=== PATIENT | male | born 1985 | race Caucasian/White ===

== ENCOUNTER 2017-10-01 07:47 | Emergency (ER) | payer OTHER ==
[~2017-10-01] VITALS: Ht 180.3 cm; Wt 72.7 kg
[~2017-10-01 07:47] MED LIST: CEPHALEXIN500 M1 PO; NORCO 325 MG-51 TAB PO
[2017-10-01 07:52] VITALS: TEMP 96.8
[2017-10-01 08:18] LABS: BASO % 0.8 % (0.0-2.0); EOS # 0.3 (0.0-0.7); EOS % 4.8 % (0-4.0); GRAN # 3.3 (1.4-6.5); GRAN % 61.7 % (42.2-75.2); HEMATOCRIT 39.6 % (42.0-52.0); LYMPH # 1.2 (1.2-3.4); LYMPH % 22.4 % (20.0-51.0); MEAN CELL VOLUME 87 fl (80.0-100.0); MEAN CORPUSCULAR HEMOGLOBIN 28 pg (27.0-31.0); MEAN CORPUSCULAR HGB CONC 33 g/dl (33.0-37.0); MONO # 0.5 (0.1-0.6); MONO % 9.9 % (1.7-9.3); PLATELET COUNT 186 K/mm3 (130-400); RED BLOOD COUNT 4.57 M/mm3 (4.20-5.60); REDCELL DISTRIBUTION WIDTH-CV 12.6 % (11.5-14.5)
[2017-10-01 08:23] LABS: ALBUMIN 3.8 gm/dL (3.5-5.0); BILIRUBIN,TOTAL 0.6 mg/dL (0.0-1.0); CALCIUM 8.5 mg/dL (8.4-10.2); CREATININE, serum 1.05 mg/dL (0.66-1.25); MAGNESIUM 1.7 mg/dL (1.6-2.3); POTASSIUM 4.2 mmol/L (3.4-5.0); TOTAL PROTEIN 6.5 gm/dL (6.4-8.2)
[2017-10-01 08:54] LABS: TSH w REFLEX 0.939 uIU/mL (0.465-4.680)
[2017-10-01 09:50] LABS: COLLECTION METHOD CLEAN CATCH
[2017-10-01 09:58] LABS: MUCOUS Present /lpf; PH 6 (5-8); SQUAMOUS EPITHELIAL 0-2 /hpf; URINE APPEARANCE Clear; URINE BACTERIA None Seen /hpf; URINE BILIRUBIN Negative (NEGATIVE); URINE BLOOD Negative (NEGATIVE); URINE COLOR Yellow; URINE GLUCOSE Negative (NEGATIVE); URINE KETONE Negative (NEGATIVE); URINE LEUKOCYTE ESTERASE Negative (NEGATIVE); URINE NITRATE Negative (NEGATIVE); URINE PROTEIN(semi-quant) Negative (NEGATIVE); URINE RBC 0-2 /hpf; URINE UROBILINOGEN Negative (NEGATIVE)
[2017-10-01 10:19] VITALS: BP 100/74; PULSE 64
== END 2017-10-01 10:20 | disposition home or self-care (01) ==
LOC: COL.ER 07:47
PROVIDERS: Physician Assistant
DX: R55 Syncope and collapse (principal); E86.0 Dehydration; F12.90 Cannabis use, unspecified, uncomplicated
CPT/HCPCS: J7030

== ENCOUNTER 2018-12-07 04:49 | Observation (INO) | payer OTHER ==
[2018-12-07] VITALS (7 sets, daily range): BP systolic 91–118; BP diastolic 52–66; PULSE 50–55; TEMP 97.9–98.5
[~2018-12-07] VITALS: Ht 180.3 cm; Wt 70.5 kg
[2018-12-07 05:28] LABS: BASO % 0.3 % (0.0-2.0); EOS % 0.1 % (0-4.0); GRAN # 13.7 (1.4-6.5); GRAN % 88.7 % (42.2-75.2); HEMATOCRIT 45.7 % (42.0-52.0); HEMOGLOBIN 15.5 g/dl (13.5-18.0); LYMPH # 0.7 (1.2-3.4); LYMPH % 4.8 % (20.0-51.0); MEAN CELL VOLUME 84 fl (80.0-100.0); MEAN CORPUSCULAR HEMOGLOBIN 29 pg (27.0-31.0); MEAN CORPUSCULAR HGB CONC 34 g/dl (33.0-37.0); MEAN PLATELET VOLUME 9.6 fl (7.4-10.4); MONO # 0.9 (0.1-0.6); MONO % 5.6 % (1.7-9.3); PLATELET COUNT 264 K/mm3 (130-400); RED BLOOD COUNT 5.44 M/mm3 (4.20-5.60); REDCELL DISTRIBUTION WIDTH-CV 12.5 % (11.5-14.5)
[2018-12-07 05:39] LABS: ALANINE AMINOTRANSFERASE 12 U/L (21-72); ALBUMIN 4.8 gm/dL (3.5-5.0); ALKALINE PHOSPHATASE 84 U/L (50-136); ANION GAP 13 mmol/L (7-16); AST,SGOT 29 U/L (15-37); BLOOD UREA NITROGEN 17 mg/dL (9-20); C-REACTIVE PROTEIN < 0.5 mg/dL (0.0-0.9); CALCIUM 10.1 mg/dL (8.4-10.2); CARBON DIOXIDE 27 mmol/L (22-30); CHLORIDE 98 mmol/L (98-107); CREATININE, serum 1.05 (0.66-1.25); GLUCOSE 127 mg/dL (74-106); LIPASE 32 U/L (23-300); SODIUM 138 mmol/L (137-145); TOTAL PROTEIN 8.6 gm/dL (6.4-8.2)
[2018-12-07 11:02] LABS: COLLECTION METHOD CLEAN CATCH
[2018-12-07 11:21] LABS: MUCOUS Present /lpf; PH 9 (5-8); SQUAMOUS EPITHELIAL None Seen /hpf; URINE APPEARANCE Hazy; URINE BACTERIA Rare /hpf; URINE BILIRUBIN Negative (NEGATIVE); URINE BLOOD Negative (NEGATIVE); URINE COLOR Yellow; URINE GLUCOSE Negative (NEGATIVE); URINE KETONE Negative (NEGATIVE); URINE LEUKOCYTE ESTERASE Negative (NEGATIVE); URINE NITRATE Negative (NEGATIVE); URINE PROTEIN(semi-quant) Negative (NEGATIVE); URINE UROBILINOGEN Negative (NEGATIVE)
--- NOTE | 2018-12-07 12:40 | NUR ---
Patient up to room 322 from ER. Alert and oriented x 3. Patient oriented to room. Denies further needs at this time.
--- NOTE | 2018-12-07 18:25 | NUR ---
Patient has done well this afternoon, requested nausea medicaition after arrival from OR, states better with zofran administration, later requested tylenol for mild abdominal pain, given per order. Currently ordering supper. Encouraged patient to ambulate. Lap sites x 3 with swiftset. Denies further needs at this time. Will report off to night worker.
--- NOTE | 2018-12-07 20:20 | NUR ---
Pt. has met criteria to discharge. Pt. unable to fill script tonight. Dr. Damian notified for home script to send with pt. New order received.
--- NOTE | 2018-12-07 20:40 | NUR ---
Pt. give discharge paperwork. Eduction, meds and follow up reviewed with the pt. Pt. voices understanding. Pt. given home pain meds and script to fill tomorrow. Pt. given health summary. INT discontinued from rt. forearm. Pt. dressed and escorted out by this nurse.
--- NOTE | 2018-12-07 22:50 | NUR ---
Pt. sitting up in bed at this time. Pt. is A&OX3, assessment complete INT to rt. hand patent. 3 abd. lap sites noted, cdi. Pt. denies needs at this time.
== END 2018-12-07 20:45 | disposition home or self-care (01) ==
LOC: COL.ER 04:49 → SURG 07:45
PROVIDERS: Emergency Medicine; ADMIT Surgery
DX: K35.80 Unspecified acute appendicitis (principal)
CPT/HCPCS: G0378; J2270; J2300; J2405; J2543; J2704; J2710; J3010; J7030; Q9967